=== PATIENT | male | born 1945 | race Caucasian/White ===

== ENCOUNTER 2016-11-05 06:06 | Inpatient (IN) ==
--- NOTE | 2016-10-23 13:38 | EKG Report ---
Stationary ECG Study [facility] Test Date: 10/23/2016 1:37:52 PM Pat Name: DIAZ ODEN Department: Room: Gender: M [employer] Operator: CORNELIA QUAN : 1945 Requested by: Olegario Quan Order Number: [id number] Reading MD: SAMANTHA DAVIS Intervals [place] Rate: 75 P: 83 UT: 173 QRS: 74 QRSD: 90 T: 89 QT: 370 QTc: 399 Interpretive Statements SINUS RHYTHM MODERATE ST DEPRESSION Electronically Signed On 10-24-16 20:49:43 CDT by SAMANTHA DAVIS [email or web address]
[2016-10-23 13:58] LABS: Basophils % 0.3 % (0.0-0.8); Eosinophils # 0.1 10*3/uL (0.0-0.87); Eosinophils % 0.9 % (0.00-10.9); Hematocrit 47.6 VOL% (42.0-52.0); Hemoglobin 16.4 GM/DL (14.0-18.0); Immature Granulocytes % 0.3 %; Immature Granulocytes Absolute 0.02 #; Lymphocytes # 1.2 10*3/uL (1.4-4.0); Lymphocytes % 18.6 % (21.2-54.2); Mean Corpuscular HGB Conc 34.5 GM/DL (32-36); Mean Corpuscular Hemoglobin 33 PG (27-34); Mean Corpuscular Volume 94.8 FL (87-102); Mean Platelet Volume 10.2 FL (9.6-12.0); Monocytes # 0.5 10*3/uL (0.11-0.8); Monocytes % 7.6 % (1.7-12.7); Neutrophils # 4.8 10*3/uL (1.4-7.4); Neutrophils % 72.3 % (38.7-73.9); Platelet Count 180 T/CUMM (130-400); Red Blood Count 5.02 MC/CUMM (3.8-5.5); Red Cell Distribution Width 13.8 % (9.3-17.3); White Blood Count 6.6 T/CUMM (4-12)
[2016-10-23 14:19] LABS: Albumin 4.1 G/DL (3.4-5.0); Bilirubin,Total 0.4 MG/DL (0.2-1.0); Calcium 9.6 MG/DL (8.5-10.1); Osmolality,Calculated 275.5 MOS/KG (273-304); Potassium 5.9 MMOL/L (3.5-5.1); Total Protein 7.9 G/DL (6.4-8.3)
--- NOTE | 2016-10-23 14:43 | XRay Report ---
XR chest 2V Indication: Preop respiratory evaluation Comparison: Chest x-ray dated August 26, 2007 Technique: Frontal and lateral views of the chest. Findings: The cardiomediastinal silhouette is stable in configuration. Chronic change of the lungs without focal consolidation, pleural effusion, or pneumothorax. Visualized osseous and surrounding soft tissue structures appear grossly unchanged. IMPRESSION: Stable chest x-ray without acute cardiopulmonary process demonstrated. PROCEDURE INTERPRETED AT [facility] DEPARTMENT OF RADIOLOGY Final Report Signed by: Dr Christoph Faria
[2016-11-05] MEDS ORDERED: HEPARIN 5,000 UNIT/1 ML VIAL ONE (07:05)
[2016-11-05] MEDS ORDERED: DIAZEPAM 5 MG TABLET PO ONE (07:06)
[2016-11-05] MEDS ORDERED: FAMOTIDINE 20 MG TABLET PO ONE (07:08)
[2016-11-05] MEDS ORDERED: ceFAZolin 1,000 MG VIAL ONE (07:22)
[2016-11-05] MEDS ORDERED: SODIUM CHLORIDE 0.9% 100 ML IV ONE (07:22)
[2016-11-05] MEDS ORDERED: DIAZEPAM 5 MG TABLET ONE (07:22)
[2016-11-05] MEDS ORDERED: FAMOTIDINE 20 MG TABLET ONE (07:22)
[2016-11-05] MEDS ORDERED: LACTATED RINGERS 1,000 ML IV SCH (08:00)
--- NOTE | 2016-11-05 08:04 | History and Physical Update ---
History and Physical Update - History and Physical H&P was reviewed, the patient examined and there: are no changes in the patients condition since last H&P was completed.
[2016-11-05] MEDS ORDERED: VANCOMYCIN 1,000 MG VIAL ONE (08:36)
[2016-11-05] MEDS ORDERED: NEOSTIGMINE 10 MG/10 ML VIAL ONE (08:40)
[2016-11-05] MEDS ORDERED: GLYCOPYRROLATE 0.4 MG/2 ML VIAL ONE (08:40)
[2016-11-05] MEDS ORDERED: LIDOCAINE 2% 5 ML VIAL ONE (08:40)
[2016-11-05] MEDS ORDERED: ONDANSETRON 4 MG/2 ML VIAL ONE (08:40)
[2016-11-05] MEDS ORDERED: ROCURONIUM 100 MG/10 ML VIAL IV ONE (08:40)
[2016-11-05] MEDS ORDERED: ETOMIDATE 20 MG/10 ML VIAL IV ONE (08:40)
[2016-11-05] MEDS ORDERED: HYDROCORTISONE 100 MG VIAL ONE (08:40)
[2016-11-05] MEDS ORDERED: oxyCODONE/ACETAMINOPHEN 5-325 MG TABLET PO PRN (10:22)
[2016-11-05] MEDS ORDERED: DOPamine 800 MG/250 ML PREMIX IV PRN (10:22)
[2016-11-05] MEDS ORDERED: HYDROmorphone 2 MG/1 ML VIAL IV PRN ×2 (10:22)
[2016-11-05] MEDS ORDERED: PROMETHAZINE 25 MG/1 ML VIAL IM PRN (10:22)
[2016-11-05] MEDS ORDERED: ONDANSETRON 4 MG/2 ML VIAL IV PRN (10:22)
[2016-11-05] MEDS ORDERED: DEXTROSE 50% 25 GM/50 ML VIAL IV PRN (10:22)
[2016-11-05] MEDS ORDERED: GLUCAGON 1 MG VIAL IM PRN (10:22)
[2016-11-05] MEDS ORDERED: NALOXONE 0.4 MG/ML VIAL IV PRN (10:22)
--- NOTE | 2016-11-05 10:33 | Operative Note ---
Date of procedure: 11/05/16 Procedure: Dr. Quan operative report Killian Hauser. Surgeon: Avelina Anesthesia: Iliev general endotracheal Preoperative diagnosis: Symptomatic left carotid stenosis Postoperative diagnosis: Same Procedure: Left carotid endarterectomy with bovine pericardial patch Indications for the procedure: Mr. Cano is a 71-year-old man with a probable symptomatic left carotid stenosis I discussed carotid endarterectomy I have explained the alternatives the risks and complications which he understands and accepts Description of the procedure: After the induction of general endotracheal anesthesia the patient's left neck was prepped with ChloraPrep and draped in usual fashion his neck was turned somewhat to the right eye began by making an incision in a skin crease below the angle of the mandible carried this into the subplatysmal space dissection was then carried out along the anterior border of the sternocleidomastoid muscle the anterior facial vein was ligated hemoclipped and divided I continued dissection down to the common carotid artery and noted it was not a particularly large artery and had extensive calcification much more so than I would normally find this extended down low to just below the clavicle to the point that did not find a very soft area of the common carotid artery this was controlled with a maxi vessel loop. Patient received 5000 units of intravenous heparin I continued dissecting up along the common carotid past the diseased bifurcation to the more normal internal and external carotid arteries these were controlled with Vesseloops as well as the superior thyroid artery. With anticoagulation I brought up the Vesseloops control the artery made a longitudinal arteriotomy from the common carotid through the diseased bifurcation to the more normal distal internal carotid artery are noted plaque that extended further proximally and distally. I extended the endarterectomy incision distally or proximally along the common carotid artery. Placed Ramirez- [place] shunt into the internal carotid getting good back flow but I could not get the shunt to pass into the common carotid and seat adequately. I therefore proceeded without the shunt and performed a carotid endarterectomy with an extensive proximal endarterectomy of the common carotid artery again obtaining excellent inflow. I did add good feathering along the internal and external carotid arteries loose flaps of medial were then taken with loupe magnification endarterectomized segment was flushed with heparinized saline bovine pericardial patch and 5-0 Prolene suture were used to close the arteriotomy flushing the common carotid then the external and internal carotids and flushing again with heparinized saline prior to completing the arteriotomy closure. Flow was initiated from the common carotid into the external and then restored into the internal carotid artery hemostasis was reasonably good heparin was partially reversed with 25 mg of protamine on noted good flow by Doppler in the external and internal carotid arteries observed for approximately 5 minutes and continued to have good flow. Hemostasis had been good but the patient had good bit of petechial bleeding along the neck and subcutaneous tissues I therefore sprayed with Tisseel drain with 1/4 inch Rafa drain the incision was closed with 3-0 Monocryl on the platysma skin clips on the skin blood loss was more than normal at approximately 250-300 cc sponge needle and his counts are correct patient remained stable throughout the procedure was taken to recovery Surgeon / Physician: Olegario Quan Results - Labs CBC & BMP: 10/23/16 13:53 11/05/16 08:10 Discharge Plan - Discharge Medications No Action Omeprazole [Prilosec] 20 mg PO DAILY Meloxicam 7.5 mg PO QOTHER DAY valACYclovir [Valtrex] 500 mg PO BID Atorvastatin [Lipitor] 20 mg PO DAILY Cyanocobalamin (Vitamin B-12) [Vitamin B-12] 5,000 mcg PO DAILY Ropinirole HCl 0.5 mg PO BEDTIME [place]-3 Fatty Acids [Fish Oil] 300 mg PO BID Cyanocobalamin/Folic Acid [Vitamin U50-Otkjn Acid Tablet] 1 each PO DAILY Budesonide/Formoterol 160-4.5 [Symbicort 160-4.5] 2 puff INH BID Multivitamin [Multivitamins] 1 tablet PO DAILY Aspirin [Ecotrin] 81 mg PO DAILY - Follow Up or Referral - Forms/Instructions
--- NOTE | 2016-11-05 10:48 | Anesthesia Post-Op ---
Anesthesia Post OP - Post Ansesthetic Evaluation Patient seen in post op: Yes Resp: within normal limits CV: within normal limits Mental: within normal limits Temp: within normal limits [id number]-[id number]: within normal limits Nausea and Vomiting: within normal limits Pain: within normal limits
[2016-11-05] MEDS ORDERED: DESFLURANE 1 UNIT/15 MINUTE INH ONE (10:54)
[2016-11-05] MEDS ORDERED: SUFentanil 50 MCG/ML AMP ONE (10:55)
[2016-11-05] MEDS ORDERED: ACETAMINOPHEN 1,000 MG/100 ML VIAL IV ONE (10:55)
[2016-11-05] MEDS: LACTATED RINGERS 1,000 ML IV SCH ×4 (11:35→23:23)
[2016-11-05] MEDS: CLOPIDOGREL 75 MG TABLET PO SCH (12:39)
--- NOTE | 2016-11-05 17:17 | Event Note ---
Mr. 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
[2016-11-05] MEDS: OMEGA PO SCH (21:02)
[2016-11-05] MEDS: FATTY ACIDS PO SCH (21:02)
[2016-11-05] MEDS: valACYclovir 500 MG TABLET PO SCH (21:02)
[2016-11-05] MEDS: BUDESONIDE/FORMOTEROL 160-4.5 INHALER 6 GM INH SCH (22:18)
[2016-11-06] MEDS: BUDESONIDE/FORMOTEROL 160-4.5 INHALER 6 GM INH SCH ×3 (04:48→16:34)
[2016-11-06] MEDS: LACTATED RINGERS 1,000 ML IV SCH (06:24)
--- NOTE | 2016-11-06 07:25 | Event Note ---
Mr. Strickland is awake alert oriented neck looks good drain removed neurologically intact vital signs are good. We will move him to a room possibly discharge this afternoon
[2016-11-06] MEDS: valACYclovir 500 MG TABLET PO SCH (08:39)
[2016-11-06] MEDS: CLOPIDOGREL 75 MG TABLET PO SCH (08:39)
[2016-11-06] MEDS ORDERED: OMEGA 3 ACID ETHYL ESTERS 1 GM CAPSULE PO SCH (09:00)
[2016-11-06] MEDS ORDERED: PANTOPRAZOLE 40 MG TABLET PO SCH (09:00)
[2016-11-06] MEDS ORDERED: ATORVASTATIN 20 MG TABLET PO SCH (09:00)
[2016-11-06] MEDS ORDERED: ASPIRIN EC 81 MG TABLET PO SCH (09:00)
[2016-11-06] MEDS: FATTY ACIDS PO SCH (09:30)
[2016-11-06] MEDS: OMEGA PO SCH (09:30)
--- NOTE | 2016-11-06 11:24 | Pathology Report from [facility] ---
[facility] ACCESSION # : [id number] PATIENT NAME : Jr. Oden Chester ORDERING DR : RACHEL BARRERA MD CLINICAL HX: Carotid stenosis POST-OP DX: Same SPECIMEN INFO: Left carotid plaque GROSS DESCRIPTION: The specimen is received in formalin labeled with the patients name and consists of a 6.9 cm x up to 1.5 cm aggregate of yellow-pink endarterectomy tissue with marked calcifications present. Investment Director tissue submitted in one cassette following decalcification. DIAGNOSIS FOR DIAZ ODEN JR.: LEFT CAROTID ARTERY, ENDARTERECTOMY: Calcified atheromatous plaque. COLLECTED DATE: 11/05/2016 [facility] REPORT DATE: 11/06/2016 ELECTRONICALLY SIGNED BY: Janak Santoro M.D. 11/06/2016 - 9:53:09 [email or web address]
[2016-11-06] MEDS: oxyCODONE/ACETAMINOPHEN 5-325 MG TABLET PO PRN ×2 (12:30→16:08)
[2016-11-06 17:10] VITALS: BP 151/70
--- NOTE | 2016-11-06 17:13 | Discharge Summary ---
Hospital Course - Hospital Course Hospital Course: Chest to do it was admitted yesterday for left carotid endarterectomy which has been carried out and he has done well his vital signs are normal he is up and ambulatory tolerating his diet with no neurologic deficit headache or significant swelling of his neck. He is ready for discharge and I discussed with him his son and [id number] discharge plans including medications wound care exercise restrictions expected recovery I will see him in the office next week for staple removal he will be on 81 mg aspirin as he was permanently I will add 75 mg of Plavix for approximately 6 weeks and I will give him [place] 7 hands #20 for pain Specialty Discharge - Follow Up or Referrals Follow up with: Olegario Quan MD [Physician] - 11/12/16 2:15 pm Discharge Plan - Discharge Data Disposition: Disch To Home/Self Care Condition at Discharge: Stable Discharge Diet: advance to your usual diet Activity: resume usual activities as tolerated Hygiene: may shower Weight Bearing at Discharge: full weight bearing Driving: not until seen by doctor Contact your physician if you experience:: Nausea/Vomiting, Bleeding - Discharge Medications [place]-3 Fatty Acids [Fish Oil] 300 mg PO BID Clopidogrel [Plavix] 75 mg PO DAILY #60 tablet Hydrocodone/Acetaminophen [[place] 7.5-325 Tablet] 1 - 2 each PO Q6HR PRN #20 tablet PRN Reason: pain Continue Omeprazole [Prilosec] 20 mg PO DAILY Meloxicam 7.5 mg PO QOTHER DAY valACYclovir [Valtrex] 500 mg PO BID Atorvastatin [Lipitor] 20 mg PO DAILY Cyanocobalamin (Vitamin B-12) [Vitamin B-12] 5,000 mcg PO DAILY Ropinirole HCl 0.5 mg PO BEDTIME [place]-3/Dha/Epa/Fish Oil [[place]-3 Fish Oil 1,000 mg Sfgl] 1,000 mg PO BID Budesonide/Formoterol 160-4.5 [Symbicort 160-4.5] 2 puff INH BID Multivitamin [Multivitamins] 1 tablet PO DAILY Aspirin [Ecotrin] 81 mg PO DAILY Discontinued Cyanocobalamin/Folic Acid [Vitamin A99-Bzqbh Acid Tablet] 1 each PO DAILY - Follow Up or Referral Follow Up: Olegario Quan MD [Physician] - 11/12/16 2:15 pm - Forms/Instructions Exam - Constitutional Vitals: Period Temp Pulse Resp BP Sys/Santos Pulse Ox Last 24 Hr 97.4 F-98.2 F 44-109 13-20 97-187/36-78 89-99 DS: Provider Date of admission: 11/05/16 06:06 Primary care physician: Austyn Harrison MD Attending physician on admission: Olegario Quan MD Discharging clinician: Olegario Quan MD
[2016-11-07] MEDS ORDERED: MELOXICAM 7.5 MG TABLET PO SCH (09:00)
== END 2016-11-06 17:45 | disposition home or self-care (01) | DRG 39 ==
LOC: N.SDSINP 06:06 → N.ICU 11:51 → N.3E 11-06 09:15
PROVIDERS: ADMIT Surgery; ATTEND Surgery